=== PATIENT | male | born 1975 | race Caucasian/White ===

== ENCOUNTER 2022-07-30 15:13 | Emergency (ER) | payer MEDICARE, OTHER ==
[~2022-07-30] VITALS: Ht 182.9 cm; Wt 72.6 kg
[~2022-07-30 15:13] MED LIST: Amoxicillin500 MG PO; Augmentin 875-1 EACH PO; CHLO5 PO; IBUP600 PO; Klonopin0.5 MG PO; Norco 5-325 Ta1 EACH PO; RANI150 PO
== END 2022-07-30 17:00 | disposition home or self-care (01) ==
LOC: ER 15:13
DX: M79.644 Pain in right finger(s) (principal); W19.XXXA Unspecified fall, initial encounter; F17.210 Nicotine dependence, cigarettes, uncomplicated
CPT/HCPCS: 73130

== ENCOUNTER 2022-08-08 14:40 | Emergency (ER) | payer OTHER, MEDICARE ==
[~2022-08-08] VITALS: Ht 172.7 cm; Wt 72.6 kg
== END 2022-08-08 19:25 | disposition home or self-care (01) ==
LOC: ER 14:40
DX: M25.531 Pain in right wrist (principal); W01.0XXA Fall on same level from slipping, tripping and stumbling without subsequent striking against object, initial encounter; F17.210 Nicotine dependence, cigarettes, uncomplicated; Z88.8 Allergy status to other drugs, medicaments and biological substances
CPT/HCPCS: 73110; 73610

== ENCOUNTER → 2023-01-05 | Outpatient (CLI) | payer MEDICARE, OTHER ==
[2023-01-05 21:09] LABS: Albumin, Blood 4.3 g/dL (3.4-5.0); Albumin/Globulin Ratio 1.2 (0.8-1.8); Bilirubin, Direct 0.1 mg/dL (0.0-0.3); Bilirubin, Indirect 0.5 mg/dL (0.1-0.7); Bilirubin, Total 0.6 mg/dL (0.1-1.0); Globulin, Blood 3.5 g/dL (2.2-4.0); Total Protein, Blood 7.8 g/dL (6.4-8.2)
== END ==
LOC: LAB SHORT 17:00 → LAB 17:00
PROVIDERS: Physician Assistant
DX: B35.1 Tinea unguium (principal)
CPT/HCPCS: 80076